=== PATIENT | male | born 1960 | race Caucasian/White ===

== ENCOUNTER 2024-07-25 11:40 | Day surgery (SDC) | payer BC ==
[2024-07-25 12:44] VITALS: RESP 16; TEMP 98.3
[2024-07-25] MEDS: LIDOCAINE 1% (10MG/ML) FOR IV START INTRADERMA STA (12:46)
[2024-07-25] MEDS: LACTATED RINGERS 1,000 ML IV SCH (12:46)
[2024-07-25] MEDS: IV FLUID CONTINUATION 1,000 ML IV ONE ×2 (12:47→13:15)
[2024-07-25] MEDS ORDERED: PROPOFOL 10 MG/ML 20 ML VIAL IV ONE (13:16)
[2024-07-25 13:48] VITALS: BP 123/80
[2024-07-25 13:55] VITALS: PULSE 66
--- NOTE | 2024-07-25 14:04 | P.PCN ---
Date of Procedure: 07/25/24 Procedure(s) Performed: BRIEF HISTORY: Patient is a 64-year-old pleasant white male scheduled for an elective colonoscopy as a part of screening for colon cancer/positive Cologuard. PROCEDURE PERFORMED: Colonoscopy with snare polypectomy. PREOPERATIVE DIAGNOSIS: Screening for colon cancer/positive Cologuard. IV sedation per Anesthesia. PROCEDURE: After informed consent was obtained, the patient, was brought into the endoscopy unit. IV sedation was administered by Anesthesia under continuous monitoring. Digital rectal examination was normal. Initially the Olympus CF-160 flexible video colonoscope was then inserted in the rectum, gradually advanced into the cecum without any difficulty. Careful examination was performed as the scope was gradually being withdrawn. Ileocecal valve and the appendiceal orifice were visualized and appeared normal. Prep was excellent. Mucosa of the cecum, ascending colon, appeared normal. The transverse colon there was a 1 cm polyp by snare polypectomy. Rest of the transverse colon, descending colon appeared normal. In the sigmoid colon there was a 1 cm and 2 cm pedunculated polyp both of which were removed by snare polypectomy. Scattered left-sided diverticulosis seen. Rest of the sigmoid colon, and rectum appeared normal. Retroflexion was performed in the rectum and no lesions were seen. The patient tolerated the procedure well. IMPRESSION: 1 cm transverse colon polyp status post polypectomy 1 cm pedunculated and 2 cm pedunculated sigmoid colon polyp status post snare polypectomy Scattered sigmoid diverticulosis RECOMMENDATIONS: Findings of this examination were discussed with the patient as well as his family. He was advised to follow up send results. If the biopsy reveals adenoma he can have repeat colonoscopy 3 years..
== END 2024-07-25 14:59 | disposition home or self-care (01) ==
LOC: ORWHC2ENDO 11:40
PROVIDERS: ATTEND Internal Medicine Gastroenterology
DX: Z12.11 Encounter for screening for malignant neoplasm of colon (principal); D12.3 Benign neoplasm of transverse colon; D12.5 Benign neoplasm of sigmoid colon; K57.30 Diverticulosis of large intestine without perforation or abscess without bleeding
CPT/HCPCS: 45385; J2704; 88305